=== PATIENT | female | born 1935 | race Caucasian/White ===

== ENCOUNTER 2021-04-09 08:44 | Inpatient (IN) | payer MEDICARE ==
[2021-04-09 09:15] LABS: Hemoglobin 11.6 g/dL (12.0-15.5); Mean Corpuscular HGB CONC 31.9 g/dL (32.0-36.0); Mean Corpuscular Hemoglobin 30.4 pg (27.0-33.0); Mean Corpuscular Volume 95.3 fl (81.6-98.3); Mean Platelet Volume 9.3 fl (7.4-10.4); Platelet Count 519 10x3/uL (150-450); RBC Distribution Width 13.6 % (11.5-14.5); Red Blood Cell (RBC) Count 3.82 10x6/uL (3.90-5.03); White Blood Cell (WBC) Count 21.4 10x3/uL (3.5-10.5)
[2021-04-09 09:16] LABS: MDiff Complete? YES
[2021-04-09 09:26] LABS: ALT (SGPT) Less than 6 U/L (8-55); AST (SGOT) 12 U/L (5-34); Albumin 3.6 g/dL (3.4-4.8); Alkaline Phosphatase 88 U/L (40-110); Anion Gap 15 mmol/L (10-20); BUN (Urea Nitrogen) 14 mg/dL (9.8-20.1); Bilirubin, Total 0.7 mg/dL (0.2-1.2); Calc. Creatinine Clearance 0 mL/min (70-130); Calcium 9.8 mg/dL (7.8-10.44); Carbon Dioxide 31 mmol/L (23-31); Chloride 88 mmol/L (98-107); Globulin 5.4 g/dL (2.4-3.5); Glucose 111 mg/dL (83-110); Potassium 4.1 mmol/L (3.5-5.1); Sodium 130 mmol/L (136-145)
[2021-04-09 09:48] LABS: Band 5 % (5-11); Eosinophils 1 % (0-10); Lymphocytes 5 % (21-51); Monocytes 4 % (0-10); Neutrophil 85 % (42-75)
[2021-04-09 09:52] LABS: Platelet Morphology Comment Appears Increased
[2021-04-09 09:54] LABS: RBC Morphology Normal
[2021-04-09] MEDS ORDERED: Cefepime 1 GM VIAL ONE (10:28)
[2021-04-09 11:01] LABS: Bilirubin Neg (Negative); Blood, Urine 50 (Negative); Clarity Clear (Clear); Glucose, Urine (Dipstick) Normal (Negative); Ketone, Urine 5 mg/dL (Negative); Leukocyte 25 (Negative); Nitrite Negative (Negative); Protein, Urine (Dipstick) 15 mg/dl (Neg-Trace)
[2021-04-09 11:16] LABS: Bacteria/HPF 1+ HPF (None Seen)
[2021-04-09] MEDS ORDERED: Vancomycin HCl 500 MG VIAL ONE (11:24)
[2021-04-09] MEDS ORDERED: Bisacodyl 5 MG TAB PO PRN (12:15)
[2021-04-09] MEDS ORDERED: Senokot S 8.6-50 MG TAB PO PRN (12:15)
[2021-04-09 14:09] LABS: SARS-CoV-2 NAA Rapid Test Not Detected (NotDetected)
[2021-04-09 16:55] VITALS: BMI 15.4
[2021-04-09] MEDS ORDERED: LEVALBUTEROL TARTRATE INH PRN (17:06)
[2021-04-09] MEDS ORDERED: Ventolin HFA Inhaler 60 PUFF INHALER INH PRN (17:19)
[2021-04-09] MEDS ORDERED: predniSONE 20 MG TAB PO SCH (17:30)
[2021-04-09] MEDS: traMADol HCl 50 MG TAB PO PRN (18:03)
[2021-04-09] MEDS: Ondansetron PF 4 MG/2 ML Vial IVP PRN (18:04)
[2021-04-09] MEDS: Famotidine 20 MG TAB PO SCH (20:29)
[2021-04-09] MEDS: cefTRIAXone\\ROCEPHIN 1 GM in Sodium Chloride 0.9% 100 ML IVPB SCH (23:12)
[2021-04-09] MEDS: Azithromycin 250 MG TAB PO SCH (23:12)
[2021-04-10] MEDS: Ondansetron PF 4 MG/2 ML Vial IVP PRN ×3 (00:22→15:06)
[2021-04-10 02:13] LABS: Legionella Urinary Ag Negative (Negative); Strep pneumo Urine Ag NEGATIVE (NEGATIVE)
[2021-04-10 04:20] LABS: #Monocytes 0.1 10x3/uL (0.0-1.1); #Neutrophils 11.3 10x3/uL (1.5-8.4); %Basophils 0.2 % (0.0-2.0); %Lymphocytes 5.9 % (18.0-47.0); %Monocytes 1.1 % (0.0-10.0); %Neutrophils 92.4 % (40.0-75.0); Hemoglobin 10.5 g/dL (12.0-15.5); Mean Corpuscular Hemoglobin 30.4 pg (27.0-33.0); Mean Corpuscular Volume 95.1 fl (81.6-98.3); Mean Platelet Volume 9.3 fl (7.4-10.4); Platelet Count 422 10x3/uL (150-450); RBC Distribution Width 13.4 % (11.5-14.5); Red Blood Cell (RBC) Count 3.45 10x6/uL (3.90-5.03); White Blood Cell (WBC) Count 12.3 10x3/uL (3.5-10.5)
[2021-04-10 04:43] LABS: ALT (SGPT) Less than 6 U/L (8-55); AST (SGOT) 13 U/L (5-34); Alkaline Phosphatase 79 U/L (40-110); Anion Gap 15 mmol/L (10-20); BUN (Urea Nitrogen) 12 mg/dL (9.8-20.1); Bilirubin, Total 0.4 mg/dL (0.2-1.2); Calc. Creatinine Clearance 29 mL/min (70-130); Calcium 8.4 mg/dL (7.8-10.44); Carbon Dioxide 27 mmol/L (23-31); Chloride 96 mmol/L (98-107); Globulin 3.9 g/dL (2.4-3.5); Glucose 126 mg/dL (83-110); Magnesium 1.9 mg/dL (1.6-2.6); Phosphorus 3.5 mg/dL (2.3-4.7); Potassium 3.9 mmol/L (3.5-5.1); Protein, Total 6.9 g/dL (5.8-8.1); Sodium 134 mmol/L (136-145)
[2021-04-10] MEDS: traMADol HCl 50 MG TAB PO PRN ×2 (05:16→23:33)
[2021-04-10] MEDS ORDERED: Cetirizine HCl 10 MG TAB PO SCH (09:00)
[2021-04-10] MEDS ORDERED: Cholecalciferol 1,000 UNITS (25 MCG) TAB PO SCH (09:00)
[2021-04-10] MEDS: Cholecalciferol (Vitamin D3) 400 UNITS TAB PO SCH (09:04)
[2021-04-10] MEDS: Famotidine 20 MG TAB PO SCH ×2 (09:04→20:43)
[2021-04-10] MEDS: Folic Acid 1 MG TAB PO SCH (09:04)
[2021-04-10] MEDS: Enoxaparin Sodium 40 MG/0.4 ML SYRINGE SC SCH (09:05)
[2021-04-10] MEDS ORDERED: Loperamide HCl 1 MG/7.5 ML UDCUP PO PRN (17:16)
[2021-04-10] MEDS: Metoclopramide HCl 10 MG/2 ML VIAL IVP PRN (17:38)
[2021-04-10] MEDS ORDERED: Promethazine HCl 12.5 MG in Sodium Chloride 0.9% 50 ML IVPB SCH (20:00)
[2021-04-10] MEDS: Azithromycin 250 MG TAB PO SCH (20:43)
[2021-04-10] MEDS ORDERED: predniSONE 20 MG TAB PO SCH (21:00)
[2021-04-10] MEDS: Melatonin 3 MG TAB PO PRN (22:13)
[2021-04-10] MEDS: cefTRIAXone\\ROCEPHIN 1 GM in Sodium Chloride 0.9% 100 ML IVPB SCH (22:15)
[2021-04-11 04:36] LABS: #Eosinphils 0.1 10x3/uL (0.0-0.5); #Monocytes 1.1 10x3/uL (0.0-1.1); #Neutrophils 8.5 10x3/uL (1.5-8.4); %Basophils 0.4 % (0.0-2.0); %Eosinophils 0.8 % (0.0-6.0); %Lymphocytes 13.9 % (18.0-47.0); %Monocytes 9.6 % (0.0-10.0); %Neutrophils 74.9 % (40.0-75.0); Mean Corpuscular HGB CONC 32.4 g/dL (32.0-36.0); Mean Corpuscular Hemoglobin 30.3 pg (27.0-33.0); Mean Corpuscular Volume 93.6 fl (81.6-98.3); Mean Platelet Volume 9.5 fl (7.4-10.4); Platelet Count 477 10x3/uL (150-450); RBC Distribution Width 13.3 % (11.5-14.5); White Blood Cell (WBC) Count 11.4 10x3/uL (3.5-10.5)
[2021-04-11 04:54] LABS: ALT (SGPT) Less than 6 U/L (8-55); AST (SGOT) 16 U/L (5-34); Alkaline Phosphatase 72 U/L (40-110); Anion Gap 13 mmol/L (10-20); BUN (Urea Nitrogen) 12 mg/dL (9.8-20.1); Bilirubin, Total 0.4 mg/dL (0.2-1.2); Calc. Creatinine Clearance 31 mL/min (70-130); Calcium 8.7 mg/dL (7.8-10.44); Carbon Dioxide 31 mmol/L (23-31); Cardiac Risk 3.3 (Less than 4.5); Chloride 97 mmol/L (98-107); Cholesterol 137 mg/dl (< 200 Desired); Globulin 3.5 g/dL (2.4-3.5); Glucose 85 mg/dL (83-110); HDL Cholesterol 42 mg/dL (>60 Neg Risk); LDL Cholesterol, Calculated 76 mg/dL; Magnesium 1.9 mg/dL (1.6-2.6); Phosphorus 2.9 mg/dL (2.3-4.7); Protein, Total 6.5 g/dL (5.8-8.1); Sodium 137 mmol/L (136-145); Triglycerides 93 mg/dL (Less than 150)
[2021-04-11] MEDS: traMADol HCl 50 MG TAB PO PRN ×2 (08:40→17:14)
[2021-04-11] MEDS: Folic Acid 1 MG TAB PO SCH (08:40)
[2021-04-11] MEDS: predniSONE 20 MG TAB PO SCH (08:41)
[2021-04-11] MEDS: Enoxaparin Sodium 40 MG/0.4 ML SYRINGE SC SCH (08:42)
[2021-04-11] MEDS: Cholecalciferol (Vitamin D3) 400 UNITS TAB PO SCH ×2 (08:42→08:45)
[2021-04-11] MEDS ORDERED: FLU VACC QS2021-22(65YR UP)/PF 240 MCG/0.7 ML SYRINGE IM ONE (09:00)
[2021-04-11] MEDS ORDERED: Simethicone 40 MG/0.6 ML Drop 30 ML BOT PO PRN (11:52)
[2021-04-11] MEDS ORDERED: Simethicone Chewable 80 MG TAB PO SCH (12:15)
[2021-04-11] MEDS ORDERED: Morphine 4 MG/ML VIAL SLOW IVP PRN (16:15)
[2021-04-11] MEDS: Famotidine 20 MG TAB PO SCH (20:53)
[2021-04-11] MEDS: cefTRIAXone\\ROCEPHIN 1 GM in Sodium Chloride 0.9% 100 ML IVPB SCH (21:02)
[2021-04-11] MEDS: Azithromycin 250 MG TAB PO SCH (21:03)
[2021-04-12] MEDS: traMADol HCl 50 MG TAB PO PRN ×3 (02:56→23:10)
[2021-04-12 04:23] LABS: #Monocytes 0.9 10x3/uL (0.0-1.1); #Neutrophils 4.9 10x3/uL (1.5-8.4); %Basophils 0.3 % (0.0-2.0); %Eosinophils 0.5 % (0.0-6.0); %Lymphocytes 24.1 % (18.0-47.0); %Monocytes 11.4 % (0.0-10.0); %Neutrophils 63.2 % (40.0-75.0); Hemoglobin 10.8 g/dL (12.0-15.5); Mean Corpuscular HGB CONC 31.6 g/dL (32.0-36.0); Mean Corpuscular Hemoglobin 30.5 pg (27.0-33.0); Mean Corpuscular Volume 96.6 fl (81.6-98.3); Mean Platelet Volume 9.7 fl (7.4-10.4); Platelet Count 442 10x3/uL (150-450); RBC Distribution Width 13.9 % (11.5-14.5); Red Blood Cell (RBC) Count 3.54 10x6/uL (3.90-5.03); White Blood Cell (WBC) Count 7.8 10x3/uL (3.5-10.5)
[2021-04-12 04:26] LABS: ALT (SGPT) 6 U/L (8-55); AST (SGOT) 17 U/L (5-34); Albumin 3.2 g/dL (3.4-4.8); Alkaline Phosphatase 75 U/L (40-110); Anion Gap 15 mmol/L (10-20); BUN (Urea Nitrogen) 12 mg/dL (9.8-20.1); Bilirubin, Total 0.3 mg/dL (0.2-1.2); Calc. Creatinine Clearance 30 mL/min (70-130); Calcium 8.6 mg/dL (7.8-10.44); Carbon Dioxide 29 mmol/L (23-31); Chloride 97 mmol/L (98-107); Globulin 3.7 g/dL (2.4-3.5); Glucose 80 mg/dL (83-110); Phosphorus 3.2 mg/dL (2.3-4.7); Protein, Total 6.9 g/dL (5.8-8.1); Sodium 137 mmol/L (136-145)
[2021-04-12] MEDS: Folic Acid 1 MG TAB PO SCH (09:40)
[2021-04-12] MEDS: Enoxaparin Sodium 40 MG/0.4 ML SYRINGE SC SCH (09:40)
[2021-04-12] MEDS: Cholecalciferol (Vitamin D3) 400 UNITS TAB PO SCH (09:41)
[2021-04-12] MEDS: predniSONE 20 MG TAB PO SCH (09:41)
[2021-04-12] MEDS: Ondansetron PF 4 MG/2 ML Vial IVP PRN (11:33)
[2021-04-12] MEDS: Metoclopramide HCl 10 MG/2 ML VIAL IVP PRN (14:19)
[2021-04-12] MEDS ORDERED: diphenhydrAMINE 50 MG/ML VIAL IVP SCH (15:30)
[2021-04-12] MEDS ORDERED: methylPREDNISolone Sod Succ/PF 125 MG/2 ML VIAL IVP SCH (15:33)
[2021-04-12] MEDS ORDERED: Loratadine 10 MG TAB PO SCH (15:45)
[2021-04-12] MEDS: Famotidine 20 MG TAB PO SCH (20:48)
[2021-04-12] MEDS: Azithromycin 250 MG TAB PO SCH (21:13)
[2021-04-12] MEDS: cefTRIAXone\\ROCEPHIN 1 GM in Sodium Chloride 0.9% 100 ML IVPB SCH (21:13)
[2021-04-13 05:32] LABS: #Monocytes 0.4 10x3/uL (0.0-1.1); #Neutrophils 5.8 10x3/uL (1.5-8.4); %Lymphocytes 16.5 % (18.0-47.0); %Monocytes 5.4 % (0.0-10.0); %Neutrophils 77.6 % (40.0-75.0); Hemoglobin 10.6 g/dL (12.0-15.5); Mean Corpuscular HGB CONC 31.5 g/dL (32.0-36.0); Mean Corpuscular Hemoglobin 30.5 pg (27.0-33.0); Mean Corpuscular Volume 96.8 fl (81.6-98.3); Mean Platelet Volume 10.1 fl (7.4-10.4); Platelet Count 478 10x3/uL (150-450); RBC Distribution Width 13.6 % (11.5-14.5); Red Blood Cell (RBC) Count 3.47 10x6/uL (3.90-5.03); White Blood Cell (WBC) Count 7.5 10x3/uL (3.5-10.5)
[2021-04-13 05:53] LABS: ALT (SGPT) 7 U/L (8-55); AST (SGOT) 15 U/L (5-34); Albumin 3.2 g/dL (3.4-4.8); Alkaline Phosphatase 74 U/L (40-110); Anion Gap 14 mmol/L (10-20); BUN (Urea Nitrogen) 14 mg/dL (9.8-20.1); Bilirubin, Total 0.3 mg/dL (0.2-1.2); Calc. Creatinine Clearance 30 mL/min (70-130); Calcium 8.8 mg/dL (7.8-10.44); Carbon Dioxide 31 mmol/L (23-31); Chloride 96 mmol/L (98-107); Globulin 3.7 g/dL (2.4-3.5); Glucose 112 mg/dL (83-110); Magnesium 2.1 mg/dL (1.6-2.6); Phosphorus 3.8 mg/dL (2.3-4.7); Potassium 4.8 mmol/L (3.5-5.1); Protein, Total 6.9 g/dL (5.8-8.1); Sodium 136 mmol/L (136-145)
[2021-04-13] MEDS ORDERED: predniSONE 20 MG TAB PO SCH (08:00)
[2021-04-13] MEDS: Folic Acid 1 MG TAB PO SCH (08:20)
[2021-04-13] MEDS: Loratadine 10 MG TAB PO SCH (08:20)
[2021-04-13] MEDS: Cholecalciferol (Vitamin D3) 400 UNITS TAB PO SCH (08:20)
[2021-04-13] MEDS: predniSONE 20 MG TAB PO SCH (08:20)
[2021-04-13] MEDS: traMADol HCl 50 MG TAB PO PRN ×2 (08:20→17:03)
[2021-04-13] MEDS: Enoxaparin Sodium 40 MG/0.4 ML SYRINGE SC SCH (08:21)
[2021-04-13] MEDS: Pantoprazole 40 MG VIAL IVP SCH (08:21)
[2021-04-13] MEDS: Famotidine 20 MG TAB PO SCH (20:43)
[2021-04-13] MEDS: cefTRIAXone\\ROCEPHIN 1 GM in Sodium Chloride 0.9% 100 ML IVPB SCH (21:53)
[2021-04-13] MEDS: Azithromycin 250 MG TAB PO SCH (21:53)
[2021-04-14] MEDS ORDERED: Nitroglycerin 2% Ointment 1 INCH/1 GM Packet TOP SCH (04:15)
[2021-04-14] MEDS: traMADol HCl 50 MG TAB PO PRN ×2 (04:26→20:10)
[2021-04-14] MEDS ORDERED: hydrALAZINE 20 MG/ML VIAL SLOW IVP PRN (05:42)
[2021-04-14 06:31] LABS: #Eosinphils 0.1 10x3/uL (0.0-0.5); #Monocytes 1.1 10x3/uL (0.0-1.1); %Basophils 0.1 % (0.0-2.0); %Eosinophils 0.5 % (0.0-6.0); %Lymphocytes 19.6 % (18.0-47.0); %Monocytes 9.6 % (0.0-10.0); %Neutrophils 69.8 % (40.0-75.0); Hemoglobin 10.7 g/dL (12.0-15.5); Mean Corpuscular HGB CONC 30.7 g/dL (32.0-36.0); Mean Corpuscular Hemoglobin 30.1 pg (27.0-33.0); Mean Platelet Volume 10.2 fl (7.4-10.4); Platelet Count 507 10x3/uL (150-450); RBC Distribution Width 13.8 % (11.5-14.5); Red Blood Cell (RBC) Count 3.56 10x6/uL (3.90-5.03); White Blood Cell (WBC) Count 11.4 10x3/uL (3.5-10.5)
[2021-04-14 07:01] LABS: ALT (SGPT) 8 U/L (8-55); AST (SGOT) 18 U/L (5-34); Albumin 3.3 g/dL (3.4-4.8); Alkaline Phosphatase 74 U/L (40-110); Anion Gap 16 mmol/L (10-20); BUN (Urea Nitrogen) 15 mg/dL (9.8-20.1); Bilirubin, Total 0.3 mg/dL (0.2-1.2); Calc. Creatinine Clearance 30 mL/min (70-130); Carbon Dioxide 30 mmol/L (23-31); Chloride 96 mmol/L (98-107); Globulin 3.7 g/dL (2.4-3.5); Glucose 66 mg/dL (83-110); Magnesium 2.2 mg/dL (1.6-2.6); Phosphorus 2.7 mg/dL (2.3-4.7); Potassium 4.2 mmol/L (3.5-5.1); Sodium 138 mmol/L (136-145)
[2021-04-14] MEDS ORDERED: Lorazepam 0.5 MG TAB PO SCH (08:30)
[2021-04-14] MEDS: Cholecalciferol (Vitamin D3) 400 UNITS TAB PO SCH (08:53)
[2021-04-14] MEDS: Enoxaparin Sodium 40 MG/0.4 ML SYRINGE SC SCH (08:53)
[2021-04-14] MEDS: Loratadine 10 MG TAB PO SCH (08:53)
[2021-04-14] MEDS: Pantoprazole 40 MG VIAL IVP SCH (08:53)
[2021-04-14] MEDS: predniSONE 20 MG TAB PO SCH (08:53)
[2021-04-14] MEDS: Folic Acid 1 MG TAB PO SCH (08:53)
[2021-04-14] MEDS ORDERED: PROPOFOL 20 ML ONE (13:08)
[2021-04-14] MEDS ORDERED: Lidocaine 1% PF 5 ML VIAL ONE (13:09)
[2021-04-14] MEDS ORDERED: Fentanyl 100 MCG/2 ML VIAL ONE (13:10)
[2021-04-14] MEDS: Famotidine 20 MG TAB PO SCH (20:07)
[2021-04-14] MEDS: Azithromycin 250 MG TAB PO SCH (21:59)
[2021-04-14] MEDS: Melatonin 3 MG TAB PO PRN (22:00)
[2021-04-14] MEDS: cefTRIAXone\\ROCEPHIN 1 GM in Sodium Chloride 0.9% 100 ML IVPB SCH (22:00)
[2021-04-15] MEDS: traMADol HCl 50 MG TAB PO PRN ×2 (04:47→12:47)
[2021-04-15 05:07] LABS: #Eosinphils 0.1 10x3/uL (0.0-0.5); #Monocytes 1.1 10x3/uL (0.0-1.1); #Neutrophils 7.6 10x3/uL (1.5-8.4); %Basophils 0.1 % (0.0-2.0); %Eosinophils 0.7 % (0.0-6.0); %Lymphocytes 21.2 % (18.0-47.0); %Neutrophils 67.5 % (40.0-75.0); Hemoglobin 9.9 g/dL (12.0-15.5); Mean Corpuscular HGB CONC 31.1 g/dL (32.0-36.0); Mean Corpuscular Hemoglobin 30.3 pg (27.0-33.0); Mean Corpuscular Volume 97.2 fl (81.6-98.3); Mean Platelet Volume 9.8 fl (7.4-10.4); Platelet Count 483 10x3/uL (150-450); RBC Distribution Width 14.1 % (11.5-14.5); Red Blood Cell (RBC) Count 3.27 10x6/uL (3.90-5.03); White Blood Cell (WBC) Count 11.3 10x3/uL (3.5-10.5)
[2021-04-15 08:03] LABS: ALT (SGPT) 7 U/L (8-55); AST (SGOT) 15 U/L (5-34); Albumin 2.9 g/dL (3.4-4.8); Alkaline Phosphatase 75 U/L (40-110); Anion Gap 15 mmol/L (10-20); BUN (Urea Nitrogen) 13 mg/dL (9.8-20.1); Bilirubin, Total 0.3 mg/dL (0.2-1.2); Calc. Creatinine Clearance 34 mL/min (70-130); Calcium 8.4 mg/dL (7.8-10.44); Carbon Dioxide 27 mmol/L (23-31); Chloride 97 mmol/L (98-107); Globulin 3.2 g/dL (2.4-3.5); Glucose 76 mg/dL (83-110); Magnesium 2.1 mg/dL (1.6-2.6); Phosphorus 3.1 mg/dL (2.3-4.7); Potassium 4.2 mmol/L (3.5-5.1); Protein, Total 6.1 g/dL (5.8-8.1); Sodium 135 mmol/L (136-145)
[2021-04-15 09:14] LABS: QuantiFERON-TB Gold Plus Negative (Negative)
[2021-04-15] MEDS: Enoxaparin Sodium 40 MG/0.4 ML SYRINGE SC SCH (09:21)
[2021-04-15] MEDS: Pantoprazole 40 MG VIAL IVP SCH ×2 (09:21→09:46)
[2021-04-15] MEDS: Folic Acid 1 MG TAB PO SCH (09:22)
[2021-04-15] MEDS: predniSONE 20 MG TAB PO SCH (09:22)
[2021-04-15] MEDS: Cholecalciferol (Vitamin D3) 400 UNITS TAB PO SCH (09:22)
[2021-04-15] MEDS: Loratadine 10 MG TAB PO SCH (09:23)
[2021-04-15 11:38] VITALS: TEMP 99.7
[2021-04-15 12:11] VITALS: BP 123/67
== END 2021-04-15 14:36 | disposition home health service (06) | DRG 193 ==
LOC: CSHERS 08:44 → SUATTDRO 08:44 → CSHTELE 15:32
PROVIDERS: ADMIT Family Medicine; ATTEND Internal Medicine
PROC: 0D738ZZ Dilation of Lower Esophagus, Via Natural or Artificial Opening Endoscopic (ICD-10-PCS; principal; 2021-04-14)
DX: J15.9 Unspecified bacterial pneumonia (principal); E43 Unspecified severe protein-calorie malnutrition; J44.0 Chronic obstructive pulmonary disease with (acute) lower respiratory infection; J44.1 Chronic obstructive pulmonary disease with (acute) exacerbation; Z68.1 Body mass index [BMI] 19.9 or less, adult; J96.11 Chronic respiratory failure with hypoxia; Z66 Do not resuscitate; Z20.822 Contact with and (suspected) exposure to COVID-19; M06.9 Rheumatoid arthritis, unspecified; M19.90 Unspecified osteoarthritis, unspecified site; E55.9 Vitamin D deficiency, unspecified; R62.7 Adult failure to thrive; R13.10 Dysphagia, unspecified; Z90.49 Acquired absence of other specified parts of digestive tract; Z96.653 Presence of artificial knee joint, bilateral; Z88.0 Allergy status to penicillin; Z91.013 Allergy to seafood; K21.9 Gastro-esophageal reflux disease without esophagitis; K44.9 Diaphragmatic hernia without obstruction or gangrene; K22.89 Other specified disease of esophagus; Z79.891 Long term (current) use of opiate analgesic; Z79.899 Other long term (current) drug therapy; Z82.49 Family history of ischemic heart disease and other diseases of the circulatory system; Z80.9 Family history of malignant neoplasm, unspecified
CPT/HCPCS: 36415; 71045; 71260; 74177; 74220; 80053; 80061; 81003; 81015; 83605; 83690; 83735; 83880; 84100; 84134; 84145; 84484; 85025; 86140; 86480; 87040; 87070; 87081; 87086; 87205; 87338; 87449; 87899; 93005; 93010; 94760; 96365; 96375; C9113; J0360; J0692; J0696; J1200; J1650; J2405; J2550; J2704; J2765; J2930; J3010; J3370; J3490; J7512; J7620; U0002